=== PATIENT | female | born 1955 | race Caucasian/White ===

== ENCOUNTER 2017-06-05 21:42 | Emergency (ER) | payer OTHER ==
[~2017-06-05] VITALS: Ht 165.1 cm; Wt 141.9 kg
[2017-06-06] MEDS ORDERED: ULTRACET1 TABLET PO (00:10)
[2017-06-06] MEDS ORDERED: MOTRIN600 MG PO (00:10)
[2017-06-06 00:33] VITALS: BP 135/92
== END 2017-06-06 00:34 | disposition home or self-care (01) ==
LOC: EME 21:42
PROC: 2W3DX1Z Immobilization of Left Lower Arm using Splint (ICD-10-PCS; principal; 2017-06-05)
DX: S52.502A Unspecified fracture of the lower end of left radius, initial encounter for closed fracture (principal); W10.1XXA Fall (on)(from) sidewalk curb, initial encounter; Y93.01 Activity, walking, marching and hiking; Y92.480 Sidewalk as the place of occurrence of the external cause; I10 Essential (primary) hypertension; Z88.2 Allergy status to sulfonamides
CPT/HCPCS: 73110; 93005; 99281; 99284

== ENCOUNTER 2017-10-25 15:39 | Emergency (ER) | payer OTHER ==
[~2017-10-25] VITALS: Ht 162.6 cm; Wt 137.0 kg
[~2017-10-25 15:39] MED LIST: MOTRIN600 MG PO; ULTRACET1 TABLET PO
[2017-10-25 16:06] LABS: HEMATOCRIT 41.7 % (36.0-46.0); HEMOGLOBIN 14.3 G/DL (11.9-15.5); MCH 31.7 PG (29.0-34.0); MCHC 34.3 G/DL (30.0-36.0); MCV 92.5 FL (83-99); PLATELET COUNT 155 K/uL (156-360); RBC DIS.WIDTH-CV 12.6 % (11.8-14.6); RBC DIS.WIDTH-SD 43.1 % (39-53); RED BLOOD COUNT 4.51 M/uL (3.80-5.20); WHITE BLOOD COUNT 7.7 K/uL (4.1-10.2)
[2017-10-25 16:15] LABS: CHLORIDE 103 mEq/L (99-109); POTASSIUM 4.2 mEq/L (3.7-5.4); SODIUM 141 mEq/L (136-147)
[2017-10-25 16:17] LABS: GLUCOSE 130 mg/dL (70-99)
[2017-10-25 16:21] LABS: CREATININE 0.9 mg/dL (0.6-1.3); GFR ESTIMATE (CALCULATED) > 59 mL/min/
[2017-10-25 16:22] LABS: UREA NITROGEN (BUN) 14 mg/dL (9-23)
[2017-10-25 16:26] LABS: TROP-I INTERPRETATION NEGATIVE; TROPONIN-I 0.03 ng/mL (0.0-0.30)
[2017-10-25 17:02] LABS: D-DIMER ELISA < 150.00 ng/mLDDU (<230)
[2017-10-25 19:51] LABS: TROP-I INTERPRETATION NEGATIVE; TROPONIN-I 0.03 ng/mL (0.0-0.30)
[2017-10-25] MEDS ORDERED: FLEXERIL10 MG PO (19:58)
[2017-10-25] MEDS ORDERED: ULTRAM50 MG PO (19:58)
[2017-10-25 20:17] VITALS: BP 148/66
== END 2017-10-25 20:18 | disposition home or self-care (01) ==
LOC: EME 15:39
PROVIDERS: Physician Assistant
DX: R07.89 Other chest pain (principal); I10 Essential (primary) hypertension; Z82.49 Family history of ischemic heart disease and other diseases of the circulatory system
CPT/HCPCS: 71046; 80048; 84484; 85027; 85379; 93005; 99281; 99284; J1885

== ENCOUNTER 2017-12-03 19:11 | Emergency (ER) | payer OTHER ==
[~2017-12-03] VITALS: Ht 160 cm; Wt 135.6 kg
[~2017-12-03 19:11] MED LIST changes: +FLEXERIL10 MG PO; +ULTRAM50 MG PO
[2017-12-03 20:03] LABS: BASOPHIL (%) 0.5 % (0-1); EOSINOPHIL (%) 0.6 % (0-5); EOSINOPHIL COUNT 0.1 K/uL (0-0.3); HEMATOCRIT 35.4 % (36.0-46.0); HEMOGLOBIN 12.5 G/DL (11.9-15.5); IMMATURE GRANULOCYTE (%) 0.3 % (0.0-0.7); LYMPHOCYTE (%) 18.5 % (15-42); LYMPHOCYTE COUNT 1.5 K/uL (1.0-2.8); MCHC 35.3 G/DL (30.0-36.0); MCV 90.5 FL (83-99); MONOCYTE (%) 6.9 % (3-12); MONOCYTE COUNT 0.6 K/uL (0-0.8); NEUTROPHIL (%) 73.2 % (45-76); NEUTROPHIL COUNT 5.8 K/uL (1.8-6.4); PLATELET COUNT 203 K/uL (156-360); RBC DIS.WIDTH-CV 12.6 % (11.8-14.6); RBC DIS.WIDTH-SD 41.3 % (39-53); RED BLOOD COUNT 3.91 M/uL (3.80-5.20)
[2017-12-03 20:10] LABS: INTER. NORMALIZED RATIO 1.2
[2017-12-03 20:12] LABS: PTT 28.3 SEC (25-37)
[2017-12-03 20:17] LABS: CHLORIDE 102 mEq/L (99-109); POTASSIUM 4.2 mEq/L (3.7-5.4); SODIUM 138 mEq/L (136-147)
[2017-12-03 20:18] LABS: GLUCOSE 157 mg/dL (70-99)
[2017-12-03 20:22] LABS: GFR ESTIMATE (CALCULATED) > 59 mL/min/
[2017-12-03 20:23] LABS: UREA NITROGEN (BUN) 22 mg/dL (9-23)
[2017-12-03 20:25] LABS: CREATINE KINASE 103 IU/L (1-294)
[2017-12-03] MEDS ORDERED: NORCO 5/3251 TABLET PO (23:47)
[2017-12-04 00:10] VITALS: BP 138/70
== END 2017-12-04 00:10 | disposition home or self-care (01) ==
LOC: EME 19:11
PROVIDERS: Emergency Medicine
DX: S70.12XA Contusion of left thigh, initial encounter (principal); X58.XXXA Exposure to other specified factors, initial encounter; I10 Essential (primary) hypertension
CPT/HCPCS: 73701; 80048; 82550; 85025; 85610; 85730; 93970; 99281; 99285; J3010; J7030